=== PATIENT | male | born 1995 | race African-American/Black ===

== ENCOUNTER 2017-03-24 20:13 | Emergency (ER) | payer SELFPAY ==
[~2017-03-24] VITALS: Ht 175.3 cm; Wt 81.6 kg
[2017-03-24 20:31] VITALS: BP 139/76
[2017-03-24] MEDS ORDERED: BENZ15SO MM (20:49)
[2017-03-24] MEDS ORDERED: AMOX875T PO (20:49)
--- NOTE | 2017-03-24 20:49 | PHYS DOC ---
Past Medical History Past Medical History: No Pertinent History Past Surgical History: No Surgical History Alcohol Use: None Drug Use: Marijuana Adult General Chief Complaint Chief Complaint: SORE THROAT HPI HPI Patient is a 21 year old male who presents to the emergency department with sore throat and oral pain for 4 days. He reports he has had chills without measured fever. States he is taking fluids but it is painful to chew. She's had no vomiting or diarrhea. Review of Systems Review of Systems Constitutional: chills [] Eyes: Denies change in visual acuity, redness, or eye pain [] HENT: Denies nasal congestion plains of sore throat and oral sores Respiratory: Denies cough or shortness of breath [] Cardiovascular: No additional information not addressed in HPI [] GI: Denies abdominal pain, nausea, vomiting, bloody stools or diarrhea [] : Denies dysuria or hematuria [] Musculoskeletal: Denies back pain or joint pain [] Integument: Denies rash or skin lesions [] Neurologic: Denies headache, focal weakness or sensory changes [] Endocrine: Denies polyuria or polydipsia [] Allergies Allergies Allergies Coded Allergies Type Severity Reaction Last Updated Verified No Known Drug Allergies 03/24/17 No Physical Exam Physical Exam Constitutional: Well developed, well nourished, no acute distress, non-toxic appearance. [] HENT: Normocephalic, atraumatic, bilateral external ears normal, multiple papular lesions on the buccal mucosa, on the lip. The posterior pharynx is erythematous tonsils are 2+, there is exudate on the left tonsil. Eyes: PERRLA, EOMI, conjunctiva normal, no discharge. [] Neck: Normal range of motion, no tenderness, supple, no stridor. Anterior cervical lymphadenopathy [] Cardiovascular:Heart rate regular rhythm, no murmur [] Lungs & Thorax: Bilateral breath sounds clear to auscultation [] Abdomen: Bowel sounds normal, soft, no tenderness, no masses, no pulsatile masses. [] Skin: Warm, dry, no erythema, no rash. [] Back: No tenderness, no CVA tenderness. [] Extremities: No tenderness, no cyanosis, no clubbing, ROM intact, no edema. [] Neurologic: Alert and oriented X 3, normal motor function, normal sensory function, no focal deficits noted. [] Psychologic: Affect normal, judgement normal, mood normal. [] Current Patient Data Vital Signs Vital Signs Date Time Temp Pulse Resp B/P (MAP) Pulse Ox O2 Delivery O2 Flow Rate FiO2 03/24/17 20:31 100.0 60 18 95 Room Air 100.0 EKG EKG [] Radiology/Procedures Radiology/Procedures [] Course & Med Decision Making Course & Med Decision Making Rapid strep negative Pertinent Labs and Imaging studies reviewed. (See chart for details) [] Dragon Disclaimer Dragon Disclaimer This electronic medical record was generated, in whole or in part, using a voice recognition dictation system. Departure Departure Impression: Primary Impression: Stomatitis Additional Impression: Pharyngitis Disposition: HOME, SELF-CARE Condition: STABLE Referrals: NO PCP (PCP) Patient Instructions: Stomatitis Scripts Benzocaine (MOUTH SORE) 15 Ml Solution 15 ML MM Q4HRS Y for MOUTH PAIN, #200 ML GARGLE AND SPIT NEEDED FOR PAIN MANAGEMENT Prov: BROOKS HOLLINGSWORTH APRN 03/24/17 Amoxicillin (AMOXICILLIN) 875 Mg Tablet 1 TAB PO BID, #20 TAB Prov: BROOKS HOLLINGSWORTH APRN 03/24/17 Problem Qualifiers BROOKS HOLLINGSWORTH APRN March 24, 2017 20:49
[2017-03-25 08:13] LABS: NEGATIVE OBC STREP NEG; POSITIVE OBC STREP POS
== END 2017-03-24 20:56 | disposition home or self-care (01) ==
LOC: ER 20:13
DX: K12.1 Other forms of stomatitis (principal); J02.9 Acute pharyngitis, unspecified; F12.10 Cannabis abuse, uncomplicated
CPT/HCPCS: 87070; 87880; 99283

== ENCOUNTER 2018-03-12 21:31 | Emergency (ER) | payer SELFPAY ==
[2018-03-12] MEDS: LIDOCAINE WITH 8.4% SOD BICARB 3 ML DISP.SYRIN. INJ ×2 (22:00→22:46)
[2018-03-12] MEDS: ceFAZolin IM 1 GM VIAL IM (22:46)
[2018-03-12] MEDS: DIPHTH,PERTUSS(ACELL),TET TOX 0.5 ML DISP.SYRIN. VAX IM (22:48)
== END 2018-03-12 23:08 | disposition home or self-care (01) ==
LOC: ER 21:31
DX: S62.001A Unspecified fracture of navicular [scaphoid] bone of right wrist, initial encounter for closed fracture (principal); S61.511A Laceration without foreign body of right wrist, initial encounter; F12.10 Cannabis abuse, uncomplicated; W22.8XXA Striking against or struck by other objects, initial encounter; Y93.89 Activity, other specified; Y99.8 Other external cause status; Y92.89 Other specified places as the place of occurrence of the external cause
CPT/HCPCS: 29125; 73110; 90471; 90715; 96372; 99284-25; J0690

== ENCOUNTER 2018-04-05 21:50 | Emergency (ER) | payer SELFPAY ==
[2018-04-05] MEDS: AZITHROMYCIN 250 MG TABLET. PO (23:12)
[2018-04-05] MEDS: cefTRIAXone IM 250 MG VIAL IM (23:12)
== END 2018-04-05 23:59 | disposition home or self-care (01) ==
LOC: ER 23:59
DX: S61.511D Laceration without foreign body of right wrist, subsequent encounter (principal); Z20.2 Contact with and (suspected) exposure to infections with a predominantly sexual mode of transmission; X58.XXXD Exposure to other specified factors, subsequent encounter
CPT/HCPCS: 87491; 87591; 96372; 99284; J0696; Q0144

== ENCOUNTER 2018-12-05 01:47 | Emergency (ER) | payer SELFPAY ==
[~2018-12-05] VITALS: Ht 172.7 cm; Wt 79.4 kg
[~2018-12-05 01:47] MED LIST: AMOX875T PO; BENZ15SO MM; CEPH500T PO
[2018-12-05 02:01] VITALS: BP 142/76
[2018-12-05 03:15] LABS: BILIRUBIN,URINE NEGATIVE (NEG); CLARITY,URINE CLEAR; COLOR,URINE YELLOW; NITRITE,URINE NEGATIVE (NEG); PROTEIN,URINE NEGATIVE (NEG-TRACE)
[2018-12-05 03:20] LABS: BACTERIA,URINE 0 /HPF (0-FEW); RBC,URINE 0 /HPF (0-2); SQUAMOUS EPITHELIAL CELL,UR OCC /LPF; WBC,URINE OCC /HPF (0-4)
--- NOTE | 2018-12-05 03:55 | RAD ---
Testicular ultrasound HISTORY: Right testicular pain and swelling for 2 days TECHNIQUE: Grayscale and duplex Doppler sonography were utilized. FINDINGS: Right testicle measures 4.7 x 3.2 x 2.2 cm, left testicle measures 4.2 x 2.8 x 2.2 cm. There is symmetric intact bilateral testicular blood flow with normal waveforms. Normal testicular size and echogenicity. No testicular mass, edema, microlithiasis or hypervascularity. No hydrocele. No extratesticular mass or scrotal thickening or edema. No enlargement or hypervascularity or mass of the epididymis bilaterally. IMPRESSION: Normal exam. Electronically signed by: Ramon Osborne MD (12/05/2018 3:50 AM) [facility]
[2018-12-05] MEDS ORDERED: AZITHROMYCIN 250 MG TABLET. PO ONE (04:15)
[2018-12-05] MEDS ORDERED: cefTRIAXone IM 250 MG VIAL IM ONE (04:15)
[2018-12-05] MEDS ORDERED: PODO3.5S TP (04:16)
--- NOTE | 2018-12-05 04:16 | PHYS DOC ---
Past Medical History Past Medical History: No Pertinent History Past Surgical History: No Surgical History Alcohol Use: None Drug Use: Marijuana Adult General Chief Complaint Chief Complaint: TESTICULAR PAIN OR INJURY HPI HPI Patient is a 23-year-old male who presents with 2 days of right-sided testicular lesions. He reports that he has had swelling and tenderness to palpation. He denies discharge, dysuria, hematuria, radiation of the pain. He reports that he is sexually active with one woman, he uses protection, he practices vaginal and oral sex. He reports that his partner has no symptoms. He denies trauma. Patient has a past medical history of Chlamydia. Review of Systems Review of Systems Constitutional: Denies fever or chills [] Eyes: Denies change in visual acuity, redness, or eye pain [] HENT: Denies nasal congestion or sore throat [] Respiratory: Denies cough or shortness of breath [] Cardiovascular: Denies chest pain or palpitations [] GI: Denies abdominal pain, nausea, vomiting, or diarrhea [] : Denies dysuria or hematuria, reports right-sided testicular pain and swelling [] Musculoskeletal: Denies back pain or joint pain [] Integument: Denies rash or skin lesions [] Neurologic: Denies headache, focal weakness or sensory changes [] Complete systems were reviewed and found to be within normal limits, except as documented in this note. Current Medications Current Medications Current Medications Medications (Trade) Dose Ordered Sig/Jomar Start Time Stop Time Status Last Admin Dose Admin Azithromycin (Zithromax) 1,000 mg 1X ONCE 12/05/18 04:15 12/05/18 04:16 DC 12/05/18 04:17 1,000 MG Ceftriaxone Sodium (Rocephin Im) 250 mg 1X ONCE 12/05/18 04:15 12/05/18 04:16 DC 12/05/18 04:16 250 MG Allergies Allergies Allergies Coded Allergies Type Severity Reaction Last Updated Verified No Known Drug Allergies 03/24/17 No Physical Exam Physical Exam Constitutional: Well developed, well nourished, no acute distress, non-toxic appearance. [] HENT: Normocephalic, atraumatic, nose normal. [] Eyes: Conjunctiva normal, no discharge. [] Neck: Normal range of motion, no tenderness. [] Cardiovascular: Heart rate regular rhythm, no murmur [] Lungs & Thorax: Bilateral breath sounds clear to auscultation [] Abdomen: Soft, no tenderness. [] Skin: Warm, dry, no erythema, no rash. [] Back: No tenderness, no CVA tenderness. [] : Cremasteric reflex present bilaterally, mild right-sided testicular swelling , nonerythematous, tender to palpation on the right side, multiple flat raised lesions present on the right side, circumcised Extremities: No tenderness, no edema. [] Neurologic: Alert and oriented X 3, no focal deficits noted. [] Psychologic: Affect normal, judgement normal, mood normal. [] Current Patient Data Vital Signs Vital Signs Date Time Temp Pulse Resp B/P (MAP) Pulse Ox O2 Delivery O2 Flow Rate FiO2 12/05/18 02:01 97.7 76 20 142/76 (98) 98 Room Air 97.7 Lab Values Laboratory Tests Test 12/05/18 02:50 Urine Collection Type Unknown Urine Color Yellow Urine Clarity Clear Urine pH 6.0 Urine Specific [place] 1.020 Urine Protein Negative mg/dL (NEG-TRACE) Urine Glucose (UA) Negative mg/dL (NEG) Urine Ketones (Stick) Negative mg/dL (NEG) Urine Blood Negative (NEG) Urine Nitrite Negative (NEG) Urine Bilirubin Negative (NEG) Urine Urobilinogen Dipstick 1.0 mg/dL (0.2 mg/dL) Urine Leukocyte Esterase Negative (NEG) Urine RBC 0 /HPF (0-2) Urine WBC Occ /HPF (0-4) Urine Squamous Epithelial Cells Occ /LPF Urine Bacteria 0 /HPF (0-FEW) Urine Mucus Mod /LPF EKG EKG [] Radiology/Procedures Radiology/Procedures PROCEDURE: TESTICULAR/SCROTUM Testicular ultrasound HISTORY: Right testicular pain and swelling for 2 days TECHNIQUE: Grayscale and duplex Doppler sonography were utilized. FINDINGS: Right testicle measures 4.7 x 3.2 x 2.2 cm, left testicle measures 4.2 x 2.8 x 2.2 cm. There is symmetric intact bilateral testicular blood flow with normal waveforms. Normal testicular size and echogenicity. No testicular mass, edema, microlithiasis or hypervascularity. No hydrocele. No extratesticular mass or scrotal thickening or edema. No enlargement or hypervascularity or mass of the epididymis bilaterally. IMPRESSION: Normal exam. Electronically signed by: Ramon Osborne MD (12/05/2018 3:50 AM) [facility] Course & Med Decision Making Course & Med Decision Making Pertinent Labs and Imaging studies reviewed. (See chart for details) Patient is a 23-year-old male is presenting with right-sided testicular pain and lesions. Urinalysis was within normal limits. Gonorrhea and chlamydia culture initiated. Patient agreed to prophylactic antibiotic coverage. Testicular ultrasound within normal limits. Physical exam concerning for genital warts. Topical antimicrobial prescribed. Patient stable for discharge with outpatient follow-up with PCP. Discussed findings and plan with patient, who acknowledge understanding and agreement. Dragon Disclaimer Dragon Disclaimer This electronic medical record was generated, in whole or in part, using a voice recognition dictation system. Departure Departure Impression: Primary Impression: Genital warts Referrals: NO PCP (PCP) Patient Instructions: Genital Warts, [id number] Scripts Podofilox (PODOFILOX) 3.5 Ml Solution 1 LUIS E TP BID, #3.5 ML Apply with cotton swab twice daily for 3 consecutive days, discontinue for next 4 conecutive days, and repeat until no visible wart tissue or up to 4 cycles Prov: EDWIN ADAMS DO 12/05/18 EDWIN ADAMS DO Dec 05, 2018 04:16
== END 2018-12-05 04:31 | disposition home or self-care (01) ==
LOC: ER 01:47
DX: N50.89 Other specified disorders of the male genital organs (principal); B07.8 Other viral warts; R29.2 Abnormal reflex
CPT/HCPCS: 76870; 81001; 87491; 87591; 96372; 99284; J0696; Q0144

== ENCOUNTER 2021-02-25 19:44 | Emergency (ER) | payer SELFPAY ==
[~2021-02-25] VITALS: Ht 172.7 cm; Wt 75.0 kg
[~2021-02-25 19:44] MED LIST changes: +PODO3.5S TP
[2021-02-25 19:48] VITALS: BP 124/65
[2021-02-25] MEDS ORDERED: LIDOCAINE 2% Multi-Dose 20 ML VIAL. IJ ONE (20:00)
[2021-02-25] MEDS ORDERED: AMOX1TAB61 PO (20:11)
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
[2021-02-25] MEDS ORDERED: DIPH,PERTUSS(ACELL),TET VAC/PF 0.5 ML SYRINGE. VAX IM ONE (20:15)
== END 2021-02-25 20:51 | disposition home or self-care (01) ==
LOC: ER 19:44
DX: S01.511A Laceration without foreign body of lip, initial encounter (principal); W22.8XXA Striking against or struck by other objects, initial encounter; Y93.89 Activity, other specified; Y92.89 Other specified places as the place of occurrence of the external cause; Y99.8 Other external cause status
CPT/HCPCS: 12011; 90471; 90715; 99283

== ENCOUNTER 2021-03-06 15:02 | Emergency (ER) | payer SELFPAY ==
[~2021-03-06] VITALS: Ht 172.7 cm; Wt 75.2 kg
[~2021-03-06 15:02] MED LIST changes: +AMOX1TAB61 PO
[2021-03-06 15:43] VITALS: BP 114/59
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
== END 2021-03-06 16:12 | disposition home or self-care (01) ==
LOC: ER 15:02
DX: S01.81XD Laceration without foreign body of other part of head, subsequent encounter (principal); X58.XXXD Exposure to other specified factors, subsequent encounter
CPT/HCPCS: 99281